=== PATIENT | female | born 1965 | race Caucasian/White ===

== ENCOUNTER 2016-12-03 17:39 | Emergency (ER) | payer MEDICAID ==
[~2016-12-03] VITALS: Ht 160 cm; Wt 48.5 kg
[~2016-12-03 17:39] MED LIST: ALBU18HF INHALATION; ALBU8.5H3 INH; GUAI120S26 PO; PRED20TA PO; RANI150T9 PO
[2016-12-03 19:43] VITALS: Ht 160 cm; Wt 48.5 kg
[2016-12-03] MEDS ORDERED: GUAI473L22 PO (19:57)
[2016-12-03] MEDS ORDERED: ALBU8.5H3 INH (19:57)
[2016-12-03] MEDS ORDERED: FLUT9.9S NASAL (19:57)
[2016-12-03] MEDS ORDERED: PRED50TA PO (19:57)
[2016-12-03] MEDS ORDERED: CETI10CA PO (19:57)
[2016-12-03] MEDS ORDERED: IBUP-1542 PO (19:57)
--- NOTE | 2016-12-03 20:03 | ERD ---
ER Documentation Chief Complaint Date/Time DATE: 12/03/16 TIME: 20:01 Chief Complaint fever/cough with sputum, sore throat x 5 days, hx bronchitis HPI 51-year-old female female here in emergency department for complaints of cough runny nose nasal congestion or sore throat fever for 5 days. Patient has been having cough with whitish phlegm. Patient does not have any shortness breath, onset this is a wheezing at times. Patient does not have any sick contacts. Patient uses albuterol home to help with the wheezing with mild relief. Patient and does complain of sore throat, burning pain, 4/10 scale, is worse, swollen. Patient is complaining of runny nose, nasal congestion with clear nasal discharge. ROS All systems reviewed and are negative except as per history of present illness. Medications Home Meds Active Scripts Guaifenesin-Codeine Phosphate* (Guaifenesin* AC Cough Syrup) 473 Ml Liquid, 10 ML PO Q4H Y for COUGH, #120 ML Prov:MEET BAKER NP 12/03/16 Prednisone* (Prednisone*) 50 Mg Tablet, 50 MG PO DAILY, #5 TAB Prov:MEET BAKER NP 12/03/16 Ibuprofen* (Motrin*) 600 Mg Tab, 600 MG PO Q6H Y for PAIN AND OR ELEVATED TEMP, #30 TAB Prov:MEET BAKER NP 12/03/16 Cetirizine Hcl* (Zyrtec*) 10 Mg Capsule, 10 MG PO DAILY, #30 TAB.CHEW Prov:MEET BAKER NP 12/03/16 Fluticasone Propionate (Flonase Allergy Relief) 9.9 Ml [place].susp, 1 SPRAY NASAL BID, #1 BOTTLE TO EACH NOSTRIL Prov:MEET BAKER NP 12/03/16 Albuterol Sulfate* (Proair HFA*) 8.5 Gm Hfa.aer.ad, 2 PUFF INH Q4H Y for WHEEZING AND SOB, #1 INHALER Prov:MEET BAKER NP 12/03/16 Prednisone* (Prednisone*) 20 Mg Tab, 40 MG PO DAILY for 4 Days, TAB Prov:FADY WINCHESTER PA-C 09/28/16 Albuterol Sulfate* (Proair HFA*) 8.5 Gm Hfa.aer.ad, 2 PUFF INH Q4, #1 INHALER Prov:WINCHESTERFADYPALLAVI Mccormack PA-C 09/28/16 Prednisone* (Prednisone*) 20 Mg Tab, 40 MG PO DAILY for 4 Days, TAB Prov:GERRY MALCOLM PA-C 07/28/16 Eapplhawgue-F-Tcwidhewcn Hb* (Guaifenesin* DM Syrup) 120 Ml Syrup, 10 ML PO Q4H Y for COUGH, #120 ML Prov:GERRY MALCOLM PA-C 07/28/16 Ranitidine Hcl* (Zantac*) 150 Mg Tablet, 150 MG PO BID, #60 TAB Prov:HELENAKEVINCORRYOC HUERTA 07/23/16 Albuterol Sulfate* (Ventolin HFA*) 18 Gm Hfa.aer.ad, 2 PUFF INHALATION Q4H, #1 INHALER Prov:HELENACORRY 07/23/16 Allergies Allergies: Coded Allergies: No Known Allergy (Unverified , 05/12/14) PMhx/Soc Medical and Surgical Hx: pt denies Medical Hx, pt denies Surgical Hx Hx Alcohol Use: No Hx Substance Use: No Hx Tobacco Use: No FmHx Family History: No coronary disease, No diabetes, No other Physical Exam Vitals Vital Signs Date Time Temp Pulse Resp B/P Pulse Ox O2 Delivery O2 Flow Rate FiO2 12/03/16 19:43 98.8 90 20 149/83 100 Physical Exam GENERAL: The patient is well developed and appropriate for usual state of health, in no apparent distress. HEENT: Atraumatic. Ears: Normal tympanic membrane, no erythema or bulging. No ear canal swelling. No ear discharge. Nose: Erythematous nasal turbinates with clear nasal discharge. Throat: oropharynx erythematous with postnasal drip. No tonsillar swelling or tonsillar exudates. No lymphadenopathy. CHEST: Clear to auscultation bilaterally. There are no rales, wheezes or rhonchi. HEART: Regular rate and rhythm. No murmurs, clicks, rubs or gallops. No S3 or S4. ABDOMEN: Soft, nontender and nondistended. Good bowel sounds. No rebound or guarding. No gross peritonitis. No gross organomegaly or masses. No Ewing sign or McBurney point tenderness. BACK: No midline or flank tenderness. EXTREMITIES: Equal pulses bilaterally. There is no peripheral clubbing, cyanosis or edema. No focal swelling or erythema. Full range of motion. Grossly neurovascularly intact. NEURO: Alert and oriented. Cranial nerves 2-12 intact. Motor strength in all 4 extremities with 5/5 strength. Sensation grossly intact. Normal speech and gait. SKIN: There is no apparent rash or petechia. The skin is warm and dry. HEMATOLOGIC AND LYMPHATIC: There is no evidence of excessive bruising or lymphedema. No gross cervical, axillary, or inguinal lymphadenopathy. Procedures/MDM Medical Decision Making: Patient symptoms are most likely consistent with acute bronchitis, which viral in origin. At this time, no wheezing. No symptoms of respiratory distress. No labored breathing noted. There is low suspicion for Pneumonia at this time since patients lungs sounds are clear, patient O2 saturation is normal and patient doesnt show any respiratory distress. Radiology exam is not indicated at this time. There is low suspicion for other cardiopulmonary emergencies at this time such as CHF, Pulmonary Embolism, Pneumothorax, Aortic Aneurysm or any other cardiopulmonary emergencies at this time. There is low suspicion for sepsis. Patient appears well and is hemodynamically stable. Fever is controlled with medicines. Disposition: Home. Condition: Stable Prescriptions: Guaifenesin with codeine, Zyrtec, ibuprofen, Flonase, albuterol, prednisone Instructions: Patient is advised to take medications as prescribed. Patient is advised to rest. Patient advised to increase fluid intake, do humidifier at home and if possible, do salt water gargles. Patient is advised that if symptoms are worse, shortness of breath, uncontrolled fever, stridor, vomiting, worst signs and symptoms to return to emergency department immediately. Otherwise, patient is advised to follow up with primary doctor in 5-7 days. Departure Diagnosis: Primary Impression: Acute bronchitis Bronchitis organism: unspecified organism Qualified Code: J20.9 - Acute bronchitis, unspecified organism Condition: Stable Patient Instructions: Bronchitis With Wheezing (Adult) MEET BAKER NP Dec 03, 2016 20:03
== END 2016-12-03 19:58 | disposition home or self-care (01) ==
LOC: FTE 17:39 → E/R 19:58
DX: J20.9 Acute bronchitis, unspecified (principal)
CPT/HCPCS: 99284

== ENCOUNTER 2017-04-11 09:54 | Emergency (ER) | payer MEDICAID ==
[~2017-04-11] VITALS: Ht 152.4 cm; Wt 47.0 kg
[~2017-04-11 09:54] MED LIST changes: +CETI10CA PO; +FLUT9.9S NASAL; +GUAI473L22 PO; +IBUP-1542 PO; +PRED50TA PO
[2017-04-11 09:57] VITALS: Ht 152.4 cm; Wt 47.0 kg
[2017-04-11] MEDS ORDERED: predniSONE 20 MG TAB PO STA (10:29)
[2017-04-11] MEDS ORDERED: ALBUTEROL 0.5% (NEB) 2.5 MG/0.5 ML AMP INH STA (10:29)
--- NOTE | 2017-04-11 11:14 | RADRPT ---
PROCEDURE: Chest Radiograph. CLINICAL INDICATION: Shortness of breath. Wheezing. TECHNIQUE: Single frontal chest radiograph. COMPARISON: Chest radiograph 09/28/2016 FINDINGS: The cardiomediastinal silhouette is within normal limits. No infiltrate or effusion is seen. Th e bones are intact. IMPRESSION: 1. Unremarkable chest radiograph. RPTAT: KK .Hudson Wills MD, MD Date Time Electronically viewed and signed by .Hudson Wills MD, on 04/11/2017 11:14 .B/
[2017-04-11] MEDS ORDERED: PRED20TA PO (11:24)
[2017-04-11] MEDS ORDERED: ALBU2.5V3 NEB (11:24)
--- NOTE | 2017-04-11 11:30 | ERD ---
ER Documentation Chief Complaint Date/Time DATE: 04/11/17 TIME: 11:26 Chief Complaint Complains of SOB Hx of Asthma HPI Patient is a 51-year-old female with history of asthma presents to the emergency department with a cough and shortness of breath. Patient states she has had a dry cough for a week now. Patient reports shortness of breath which started yesterday. She states that she does have wheezing. Patient last used her albuterol inhaler 3 AM today. Patient denies any fevers, chills, nausea, vomiting, chest pain, diaphoresis, left upper extremity pain, loss loss of consciousness. Patient does report asthma exacerbations in the past. Patient denies history of being intubated or hospitalized. ROS All systems reviewed and are negative except as per history of present illness. Medications Home Meds Active Scripts Albuterol Sulfate* (Albuterol Sulfate* Neb) 0.083%-3 Ml Neb, 2.5 MG NEB Q4 Y for SHORTNESS OF BREATH, #30 EA Prov:MARKY DAI PA-C 04/11/17 Prednisone* (Prednisone*) 20 Mg Tab, 40 MG PO DAILY for 4 Days, TAB Prov:MARKY DAI PA-C 04/11/17 Guaifenesin-Codeine Phosphate* (Guaifenesin* AC Cough Syrup) 473 Ml Liquid, 10 ML PO Q4H Y for COUGH, #120 ML Prov:MEET BAKER NP 12/03/16 Prednisone* (Prednisone*) 50 Mg Tablet, 50 MG PO DAILY, #5 TAB Prov:MEET BAKER NP 12/03/16 Ibuprofen* (Motrin*) 600 Mg Tab, 600 MG PO Q6H Y for PAIN AND OR ELEVATED TEMP, #30 TAB Prov:MEET BAKER NP 12/03/16 Cetirizine Hcl* (Zyrtec*) 10 Mg Capsule, 10 MG PO DAILY, #30 TAB.CHEW Prov:MEET BAKER NP 12/03/16 Fluticasone Propionate (Flonase Allergy Relief) 9.9 Ml [place].susp, 1 SPRAY NASAL BID, #1 BOTTLE TO EACH NOSTRIL Prov:MEET BAKER NP 12/03/16 Albuterol Sulfate* (Proair HFA*) 8.5 Gm Hfa.aer.ad, 2 PUFF INH Q4H Y for WHEEZING AND SOB, #1 INHALER Prov:MEET BAKER NP 12/03/16 Prednisone* (Prednisone*) 20 Mg Tab, 40 MG PO DAILY for 4 Days, TAB Prov:FADY WINCHESTER PA-C 09/28/16 Albuterol Sulfate* (Proair HFA*) 8.5 Gm Hfa.aer.ad, 2 PUFF INH Q4, #1 INHALER Prov:FADY WINCHESTER PA-C 09/28/16 Prednisone* (Prednisone*) 20 Mg Tab, 40 MG PO DAILY for 4 Days, TAB Prov:GERRY MALCOLM PA-C 07/28/16 Onwslhswtug-N-Anmomtudhj Hb* (Guaifenesin* DM Syrup) 120 Ml Syrup, 10 ML PO Q4H Y for COUGH, #120 ML Prov:GERRY MALCOLM PA-C 07/28/16 Ranitidine Hcl* (Zantac*) 150 Mg Tablet, 150 MG PO BID, #60 TAB Prov:HELENACORRY DO 07/23/16 Albuterol Sulfate* (Ventolin HFA*) 18 Gm Hfa.aer.ad, 2 PUFF INHALATION Q4H, #1 INHALER Prov:CORRY MALIK 07/23/16 Allergies Allergies: Coded Allergies: No Known Allergy (Unverified , 04/11/17) PMhx/Soc Medical and Surgical Hx: pt denies Surgical Hx History of Surgery: No Anesthesia Reaction: No Hx Neurological Disorder: No Hx Respiratory Disorders: Yes (bronchitis, bronchopneumonia) Hx Cardiac Disorders: No Hx Psychiatric Problems: No Hx Miscellaneous Medical Probl: No Hx Alcohol Use: No Hx Substance Use: No Hx Tobacco Use: No Smoking Status: Never smoker FmHx Family History: diabetes Physical Exam Vitals Vital Signs Date Time Temp Pulse Resp B/P Pulse Ox O2 Delivery O2 Flow Rate FiO2 04/11/17 11:40 98.0 99 20 126/71 98 Room Air 04/11/17 10:50 95 22 94 21 04/11/17 10:34 Nasal Cannula 2 04/11/17 09:57 98.3 95 20 133/71 96 Physical Exam General: Well-developed, well-nourished female. Appears in no acute distress. No abdominal retractions, nasal flaring, no tripoding noted. Head: Normocephalic, atraumatic. Eyes: Pupils are equally reactive bilaterally. EOMs grossly intact. No conjunctival erythema. ENT: External ear without any masses or tenderness. TM visualized bilaterally, non-erythematous, non-bulging. Nasal septum midline. Nasal mucosa pink with no discharge. Oropharynx is pink without any tonsillar erythema or exudates. No tonsillar swelling noted. No kissing tonsils. Nontender palpation of bilateral mastoid processes. Neck: Supple. Normal range of motion of the neck. No meningeal signs. Lungs: Wheezing in bilateral lobes. Heart: Regular rate and rhythm. No murmurs, rubs or gallops. Extremities: No pedal edema, unilateral leg swelling. 5/5 strength in all extremities. Neurologic: Alert and oriented x3. Moving all four extremities. Normal speech. Steady gait. Skin: Normal color. Warm and dry. No rashes or lesions. Results 24 hrs Current Medications Medications (Trade) Dose Ordered Sig/Alycia Route PRN Reason Start Time Stop Time Status Last Admin Dose Admin Albuterol (Proventil 0.5% (Neb)) 10 mg ONCE STAT INH 04/11/17 10:29 04/11/17 10:32 DC 04/11/17 10:49 Prednisone (Prednisone) 40 mg ONCE STAT PO 04/11/17 10:29 04/11/17 10:32 DC 04/11/17 10:37 Procedures/MDM ED COURSE: The patient was stable throughout ED course. I kept the patient and/or family informed of laboratory and diagnostic imaging results throughout the ED course. DIAGNOSTIC IMAGING: Read by radiologist. DIAGNOSTIC IMAGING REPORT Patient: DAVID MARTINO : 1965 Age: 51 Sex: F MR #: [id number] [facility] #: [id number] DOS: 04/11/17 1029 Ordering MD: MARKY DAI PA-C Location: [facility] Room/Bed: PROCEDURE: Chest Radiograph. CLINICAL INDICATION: Shortness of breath. Wheezing. TECHNIQUE: Single frontal chest radiograph. COMPARISON: Chest radiograph 09/28/2016 FINDINGS: The cardiomediastinal silhouette is within normal limits. No infiltrate or effusion is seen. The bones are intact. IMPRESSION: 1. Unremarkable chest radiograph. RPTAT: KK .Hudson Wills MD, MD Date Time Electronically viewed and signed by .Hudson Wills MD, MD on 2016 11:14 .B/ CC: MARKY DAI PA-C PROCEDURES: None. MEDICATIONS GIVEN: Albuterol breathing treatment, prednisone Patient tolerated medication well with no adverse reactions. MEDICAL DECISION MAKING: This is a 51-year-old female with a history of asthma presents to the ED with cough 1 week and shortness breath that started yesterday. Patient does report wheezing. Vital signs were reviewed. Patient was afebrile. Patient was not hypoxic. ENT exam was normal. Lung exam initially revealed bilateral wheezing. Patient was given a breathing treatment here in the ED. Upon reexamination, patient had improved breath sounds. Patient stated that she did feel better. Chest x-ray was unremarkable. Patient displayed no signs of respiratory distress at time of discharge. Patient had no nasal flaring, retractions or tripoding. Given these findings, the patient's presentation is most consistent with asthma exacerbation secondary to viral URI. I have a much lower clinical concern for bacterial infections including acute respiratory distress, respiratory failure, pneumonia, meningitis, sinusitis, otitis externa, acute otitis media, strep pharyngitis, epiglottitis or peritonsillar abscess. At this time I do not believe the patient requires inpatient admission. PRESCRIPTIONS: Albuterol nebulizer solution, prednisone DISCHARGE: At this time, patient is stable for discharge and outpatient management. Supportive therapies such as OTC throat lozenges, salt water gurgles, popsicles and jello discussed. I have instructed the patient to follow-up with his/her primary care physician in 1-2 days. I have instructed the patient to promptly return to the ER for any new or worsening symptoms including increased pain, swelling, fever, nausea, vomiting, weakness or difficulty breathing. The patient and/or family expressed understanding of and agreement with this plan. All questions were answered. Home care instructions were provided. Departure Diagnosis: Primary Impression: Asthma exacerbation Additional Impression: Viral URI Condition: Stable Patient Instructions: Asthma Medications Referrals: [facility] YOU HAVE RECEIVED A MEDICAL SCREENING EXAM AND THE RESULTS INDICATE THAT YOU DO NOT HAVE A CONDITION THAT REQUIRES URGENT TREATMENT IN THE EMERGENCY DEPARTMENT. FURTHER EVALUATION AND TREATMENT OF YOUR CONDITION CAN WAIT UNTIL YOU ARE SEEN IN YOUR DOCTORS OFFICE WITHIN THE NEXT 1-2 DAYS. IT IS YOUR RESPONSIBILITY TO MAKE AN APPOINTMENT FOR FOLOW-UP CARE. IF YOU HAVE A PRIMARY DOCTOR --you should call your primary doctor and schedule an appointment IF YOU DO NOT HAVE A PRIMARY DOCTOR YOU CAN CALL OUR PHYSICIAN REFERRAL HOTLINE AT IF YOU CAN NOT AFFORD TO SEE A PHYSICIAN YOU CAN CHOSE FROM THE FOLLOWING [facility] [address] [facility] [address] [facility]. [facility] [address] [facility] [address] [facility] [address] [facility]. [facility] [address] [facility]. [facility] YOU HAVE RECEIVED A MEDICAL SCREENING EXAM AND THE RESULTS INDICATE THAT YOU DO NOT HAVE A CONDITION THAT REQUIRES URGENT TREATMENT IN THE EMERGENCY DEPARTMENT. FURTHER EVALUATION AND TREATMENT OF YOUR CONDITION CAN WAIT UNTIL YOU ARE SEEN IN YOUR DOCTORS OFFICE WITHIN THE NEXT 1-2 DAYS. IT IS YOUR RESPONSIBILITY TO MAKE AN APPOINTMENT FOR FOLOW-UP CARE. IF YOU HAVE A PRIMARY DOCTOR --you should call your primary doctor and schedule and appointment IF YOU DO NOT HAVE A PRIMARY DOCTOR YOU CAN CALL OUR PHYSICIAN REFERRAL HOTLINE AT . IF YOU CAN NOT AFFORD TO SEE A PHYSICIAN YOU CAN CHOSE FROM THE FOLLOWING [facility] INSTITUTIONS: [facility] [address] [place] [address] [facility] [address] [place] [address] [facility] [address] [place] [address] Additional Instructions: Llame al doctor MAANA y blair malika LESLY PARA DENTRO DE 1-2 WOOD.Dgale a la secretaria que nosotros le instruimos hacer esta lesly.Avise o llame si mari condicin se empeora antes de la lesly. Regresa aqui si peor o no mejor. MARKY DAI PA-C Apr 11, 2017 11:30
[2017-04-11 11:40] VITALS: BP 126/71; PULSE 99; RESP 20; TEMP 98
== END 2017-04-11 11:40 | disposition home or self-care (01) ==
LOC: FTE 09:54
DX: J45.901 Unspecified asthma with (acute) exacerbation (principal); J06.9 Acute upper respiratory infection, unspecified
CPT/HCPCS: 71010; 94664; J7512; Z7610

== ENCOUNTER 2017-05-02 20:09 | Inpatient (IN) | payer MEDICAID ==
[~2017-05-02] VITALS: Ht 165.1 cm; Wt 45.5 kg
[~2017-05-02 20:09] MED LIST changes: +ALBU2.5V3 NEB
[2017-05-02] MEDS ORDERED: ALBUTEROL 0.5% (NEB) 2.5 MG/0.5 ML AMP INH STA (20:50)
[2017-05-02] MEDS ORDERED: METHYLPREDNISOLONE 125 MG INJ IM STA (20:50)
[2017-05-02] MEDS ORDERED: ALBUTEROL 0.083% (NEB) 2.5 MG/3 ML AMP HHN STA (21:14)
--- NOTE | 2017-05-02 21:30 | RADRPT ---
PROCEDURE: XR Chest. CLINICAL INDICATION: Asthma exacerbation. TECHNIQUE: Single frontal view of the chest was obtained. COMPARISON: Chest x-ray 04/11/2017. FINDINGS: The soft tissues are normal. The bony elements are normal. The heart, cardiomediastinal silhouette and hilar structures are normal. The pulmonary vasculature is normal. There is a left-sided aorta. The lungs are hyperinflated with flattening of the diaphragms. The costophrenic angles are normal. IMPRESSION: 1. Pulmonary hyperinflation which has worsened slightly as compared to 04/11/2017. 2. No evidence of an acute infiltrate. RPTAT:AAJJ Physician Nikole Date Time Electronically viewed and signed by Miguel Angel Ny Physician on 05/02/2017 21:29 /
[2017-05-02] MEDS ORDERED: LEVALBUTEROL (NEB) 1.25 MG/0.5 ML AMP INH STA (22:22)
[2017-05-02] MEDS ORDERED: IPRATROPIUM (NEB) 0.5 MG/2.5 ML AMP INH STA (22:22)
[2017-05-02] MEDS ORDERED: MAGNESIUM SULFATE 2 GM/50 ML 50 ML IVPB STA (22:22)
--- NOTE | 2017-05-03 00:06 | HP ---
Date/Time of Note Date/Time of Note DATE: 05/03/17 TIME: 00:05 Assessment/Plan VTE Prophylaxis VTE Prophylaxis Intervention: ambulation, SCD's Lines/Catheters IV [facility] Saline Lock Assessment/Plan Assessment/Plan 1. Acute asthma exacerbation with mild resp failure 2. Acute pneumonitis PLAN: bronchodilator / empiric abx / supportive care s/p steroids and mag in ER Supplemental Os, wean as tolerated Further interventions per clinical course HPI/ROS Admit Date/Time Admit Date/Time 05/03/17 Hx of Present Illness 51-year-old female with a chronic history of asthma who presents with shortness of breath and wheezing for the last 4 days. Her symptoms have slowly been worsening and she is also having cough productive of whitish sputum. She has had no fever however she had this used her home inhaler with minimal improvement. She is a non-smoker. She has required oral prednisone therapy in the past. Denies abdominal pain, nausea, vomiting, blood in stool or black stools. Also denies dysuria or hematuria. ROS 12 point review if systems was done and pertinent findings are as noted. PMH/Family/Social Past Medical History * asthma Past Surgical History Past Surgical Hx: no surgical history Family History Significant Family History: asthma Social History Smoking Status: Never smoker Exam/Review of Systems Vital Signs Vitals VS - Last 72 Hours, by Label Date Time Temp Pulse Resp B/P Pulse Ox O2 Delivery O2 Flow Rate FiO2 05/03/17 00:43 98.9 115 22 99/57 95 Nasal Cannula 2.0 05/02/17 22:30 128 22 89 21 05/02/17 21:19 112 24 89 21 05/02/17 20:22 98.9 102 22 166/79 95 Vital Signs Date Time Temp Pulse Resp B/P Pulse Ox O2 Delivery O2 Flow Rate FiO2 05/02/17 22:30 128 22 89 21 05/02/17 20:22 98.9 166/79 Exam Exam GENERAL: Patient is alert, oriented x 3, still in mild resp distress, but comfortable with o2 HEENT: Oropharynx is clear. There is no carotid bruit, no masses. Patient's pupils are equal, round and reactive to light bilaterally. Extraocular motions are intact. There is no scleral icterus. There is no facial asymmetry. NECK: Supple. LUNGS: diminshed breath sounds with diffuse exp wheezing HEART: S1, S2. No murmur, gallops or rubs. Regular rate and rhythm. ABDOMEN: Soft, nontender. Normoactive bowel sounds. There are no stigmata of chronic liver disease. BACK: no costovertebral angle tenderness. GENITOURINARY: Deferred. EXTREMITIES: No edema. There is no cyanosis, clubbing. There are 2+ pulses bilaterally distally. NEUROLOGIC: The patient has no lateralizing signs. Cranial nerves II-XII are intact. SKIN: Otherwise, unremarkable. Procedures Procedures Current Medications Medications (Trade) Dose Ordered Sig/Alycia Route PRN Reason Start Time Stop Time Status Last Admin Dose Admin Albuterol (Proventil 0.5% (Neb)) 5 mg ONCE STAT INH 05/02/17 20:50 05/02/17 20:52 DC 05/02/17 21:06 Methylprednisolone Sodium Succinate (Solu-Medrol) 125 mg ONCE STAT IM 05/02/17 20:50 05/02/17 20:52 DC 05/02/17 21:02 Albuterol (Proventil 0.083% (Neb)) 5 mg ONCE STAT HHN 05/02/17 21:14 05/02/17 21:15 DC 05/02/17 21:19 Levalbuterol (Xopenex Neb) 7.5 mg ONCE STAT INH 05/02/17 22:22 05/02/17 22:27 DC 05/02/17 22:30 Ipratropium [place] 1 mg 1 mg ONCE STAT INH 05/02/17 22:22 05/02/17 22:27 DC 05/02/17 22:30 Magnesium Sulfate (Magnesium Sulfate 2 Gm/50 ml) 50 ml @ 25 mls/hr ONCE STAT IVPB 05/02/17 22:22 05/03/17 00:21 DC 05/02/17 22:49 PROCEDURE: XR Chest. CLINICAL INDICATION: Asthma exacerbation. TECHNIQUE: Single frontal view of the chest was obtained. COMPARISON: Chest x-ray 04/11/2017. FINDINGS: The soft tissues are normal. The bony elements are normal. The heart, cardiomediastinal silhouette and hilar structures are normal. The pulmonary vasculature is normal. There is a left-sided aorta. The lungs are hyperinflated with flattening of the diaphragms. The costophrenic angles are normal. IMPRESSION: 1. Pulmonary hyperinflation which has worsened slightly as compared to 2016. 2. No evidence of an acute infiltrate. RPTAT:AAJJ Physician Nikole Date Time Electronically viewed and signed by Miguel Angel Ny, Physician on 05/02/2017 21:29 JM/ CC: BENITO LIMA PA-C, [place] M. May 03, 2017 00:05
[2017-05-03 00:43] VITALS: TEMP 98.9
--- NOTE | 2017-05-03 00:55 | ERA ---
ER Documentation Chief Complaint Date/Time DATE: 05/03/17 TIME: 00:47 Chief Complaint sob/asthma x 4 days. wheezing both lungs HPI This is a 51-year-old female with a history of asthma or chronic bronchitis presenting to the emergency department complaining of shortness of breath and wheezing for the past 4 days. Patient denies any fever , chest pain or cough. Patient has tried albuterol at 7 PM & Symbicort at 9am this morning ROS All systems reviewed and are negative except as per history of present illness. Medications Home Meds Active Scripts Albuterol Sulfate* (Albuterol Sulfate* Neb) 0.083%-3 Ml Neb, 2.5 MG NEB Q4 Y for SHORTNESS OF BREATH, #30 EA Prov:MARKY DAI PA-C 04/11/17 Prednisone* (Prednisone*) 20 Mg Tab, 40 MG PO DAILY for 4 Days, TAB Prov:MARKY DAI PA-C 04/11/17 Guaifenesin-Codeine Phosphate* (Guaifenesin* AC Cough Syrup) 473 Ml Liquid, 10 ML PO Q4H Y for COUGH, #120 ML Prov:MEET BAKER NP 12/03/16 Prednisone* (Prednisone*) 50 Mg Tablet, 50 MG PO DAILY, #5 TAB Prov:MEET BAKER NP 12/03/16 Ibuprofen* (Motrin*) 600 Mg Tab, 600 MG PO Q6H Y for PAIN AND OR ELEVATED TEMP, #30 TAB Prov:MEET BAKER NP 12/03/16 Cetirizine Hcl* (Zyrtec*) 10 Mg Capsule, 10 MG PO DAILY, #30 TAB.CHEW Prov:MEET BAKER NP 12/03/16 Fluticasone Propionate (Flonase Allergy Relief) 9.9 Ml [place].susp, 1 SPRAY NASAL BID, #1 BOTTLE TO EACH NOSTRIL Prov:MEET BAKER NP 12/03/16 Albuterol Sulfate* (Proair HFA*) 8.5 Gm Hfa.aer.ad, 2 PUFF INH Q4H Y for WHEEZING AND SOB, #1 INHALER Prov:MEET BAKER NP 12/03/16 Prednisone* (Prednisone*) 20 Mg Tab, 40 MG PO DAILY for 4 Days, TAB Prov:FADY WINCHESTER PA-C 09/28/16 Albuterol Sulfate* (Proair HFA*) 8.5 Gm Hfa.aer.ad, 2 PUFF INH Q4, #1 INHALER Prov:FADY WINCHESTER PA-C 09/28/16 Prednisone* (Prednisone*) 20 Mg Tab, 40 MG PO DAILY for 4 Days, TAB Prov:GERRY MALCOLM PA-C 07/28/16 Anvwrchzrgk-K-Vawvakbupw Hb* (Guaifenesin* DM Syrup) 120 Ml Syrup, 10 ML PO Q4H Y for COUGH, #120 ML Prov:GERRY MALCOLM PA-C 07/28/16 Ranitidine Hcl* (Zantac*) 150 Mg Tablet, 150 MG PO BID, #60 TAB Prov:CORRY MALIK DO 07/23/16 Albuterol Sulfate* (Ventolin HFA*) 18 Gm Hfa.aer.ad, 2 PUFF INHALATION Q4H, #1 INHALER Prov:HELENACORRY 07/23/16 Allergies Allergies: Coded Allergies: No Known Allergy (Unverified , 05/02/17) PMhx/Soc Medical and Surgical Hx: pt denies Surgical Hx History of Surgery: No Anesthesia Reaction: No Hx Neurological Disorder: No Hx Respiratory Disorders: Yes (bronchitis, bronchopneumonia) Hx Cardiac Disorders: No Hx Psychiatric Problems: No Hx Miscellaneous Medical Probl: No Hx Alcohol Use: No Hx Substance Use: No Hx Tobacco Use: No Smoking Status: Never smoker Physical Exam Vitals Vital Signs Date Time Temp Pulse Resp B/P Pulse Ox O2 Delivery O2 Flow Rate FiO2 05/03/17 00:43 98.9 115 22 99/57 95 Nasal Cannula 2.0 05/02/17 22:30 128 22 89 21 05/02/17 21:19 112 24 89 21 05/02/17 20:22 98.9 102 22 166/79 95 Physical Exam GENERAL: WD/WN, in no apparent distress, non-toxic appearing HENT: NC/AT, bilateral TM has good cone of light EYES: Conjunctiva normal NECK: Supple PULM: Inspiratory and expiratory wheezing. No rales, crackles, or rhonchi heard. No tripod position, normal labored breathing, no stridor, no evidence of using accessory muscles. CV: Good capillary refill, good S1 and S2, no murmurs appreciated GI: Non-distended, no guarding BACK: No masses. EXT: No clubbing, cyanosis, or edema. NEURO: Moves on all fours SKIN: intact, no cyanosis. PSYCH: Normal mood Results 24 hrs Current Medications Medications (Trade) Dose Ordered Sig/Alycia Route PRN Reason Start Time Stop Time Status Last Admin Dose Admin Albuterol (Proventil 0.5% (Neb)) 5 mg ONCE STAT INH 05/02/17 20:50 05/02/17 20:52 DC 05/02/17 21:06 Methylprednisolone Sodium Succinate (Solu-Medrol) 125 mg ONCE STAT IM 05/02/17 20:50 05/02/17 20:52 DC 05/02/17 21:02 Albuterol (Proventil 0.083% (Neb)) 5 mg ONCE STAT HHN 05/02/17 21:14 05/02/17 21:15 DC 05/02/17 21:19 Levalbuterol (Xopenex Neb) 7.5 mg ONCE STAT INH 05/02/17 22:22 05/02/17 22:27 DC 05/02/17 22:30 Ipratropium [place] 1 mg 1 mg ONCE STAT INH 05/02/17 22:22 05/02/17 22:27 DC 05/02/17 22:30 Magnesium Sulfate (Magnesium Sulfate 2 Gm/50 ml) 50 ml @ 25 mls/hr ONCE STAT IVPB 05/02/17 22:22 05/03/17 00:21 DC 05/02/17 22:49 Procedures/MDM This is a 51-year-old female presenting to the emergency department with shortness of breath and wheezing for past 4 days. Patient was still saturating at 90% oxygen after 2 breathing treatments therefore it is best that patient will get admitted to [facility] for further evaluation and management. IV access established. Patient was given 25 mg of Solu-Medrol. Patient was given albuterol 10 mg continuous 1 hour treatments and reassessed, she was still wheezing and saturating at 88-90% therefore another breathing treatment of 7.5mg Xopenex, 1 mg Atrovent continuous 1 hour treatment was given with magnesium 2 g infused over 20 minutes. Patient was reassessed and still saturating at 89. Patient was placed on 2 L of oxygen. I have consulted the attending physician who accepted admission for this patient. CXR - 1. Pulmonary hyperinflation which has worsened slightly as compared to 2016. 2. No evidence of an acute infiltrate. Patient is stable to be transferred to [facility] floor. Departure Diagnosis: Primary Impression: Respiratory distress Condition: Serious BENITO LIMA PA-C May 03, 2017 00:55
[2017-05-03 01:15] VITALS: BP 114/64; PULSE 109; RESP 18; Ht 165.1 cm; Wt 45.5 kg
[2017-05-03] MEDS ORDERED: ALBUTEROL 0.083% (NEB) 2.5 MG/3 ML AMP HHN PRN (01:30)
[2017-05-03] MEDS ORDERED: GUAIFENESIN/CODEINE 5ML CUP PO PRN (02:00)
[2017-05-03] MEDS ORDERED: LEVOFLOXACIN 500MG/D5W (PMX) 100 ML IVPB SCH (02:00)
[2017-05-03] MEDS: ALBUTEROL 0.083% (NEB) 2.5 MG/3 ML AMP HHN SCH ×3 (05:05→13:55)
[2017-05-03 05:43] LABS: ADD SCAN DIFF NO
[2017-05-03 05:50] LABS: ABNORMAL IP MESSAGE 1; HEMATOCRIT 42.2 % (37.0-47.0); HEMOGLOBIN 14.2 g/dl (12.0-16.0); LYMPHOCYTES # 0.5 10^3/ul (0.8-2.9); LYMPHOCYTES % 6.6 % (15.0-51.0); MEAN CORPUSCULAR HEMOGLOBIN 31.2 pg (29.0-33.0); MEAN CORPUSCULAR HGB CONC 33.6 g/dl (32.0-37.0); MEAN CORPUSCULAR VOLUME 92.7 fl (82.0-101.0); MEAN PLATELET VOLUME 9.5 fl (7.4-10.4); MONOCYTES % 0.5 % (0.0-11.0); NEUTROPHIL # 7.4 10^3/ul (1.6-7.5); NEUTROPHILS % 92.6 % (39.0-77.0); PLATELET COUNT 293 10^3/UL (140-415); RED BLOOD COUNT 4.55 10^6/ul (4.20-5.40)
[2017-05-03 06:08] LABS: CALCIUM 9.1 mg/dl (8.4-10.2); CREATININE 0.53 mg/dl (0.44-1.00); POTASSIUM 3.4 mmol/L (3.5-5.1)
[2017-05-03 07:15] VITALS: BP 111/57; PULSE 87; RESP 18
[2017-05-03 08:04] VITALS: BP 113/58; RESP 17
[2017-05-03] MEDS ORDERED: SALMETEROL/FLUTICASONE 250/50 INHA INH SCH (09:00)
[2017-05-03 14:38] VITALS: BP 108/58; RESP 18
[2017-05-03] MEDS ORDERED: POTASSIUM CHLORIDE (SR) 20 MEQ TAB PO STA (15:34)
--- NOTE | 2017-05-03 15:41 | PDOCDIS ---
Discharge Instructions CONDITION Patient Condition: Stable HOME CARE INSTRUCTIONS: Diet Instructions: Low Fat /Cholesterol ACTIVITY: Activity Restrictions: Slowly Increase Activity FOLLOW UP/APPOINTMENTS Follow-up Plan Please take your medicines as prescribed. Please follow-up with your doctor in the clinic in the next 1 week. ZORA ROSE May 03, 2017 15:41
[2017-05-03] MEDS ORDERED: ADV25050 INH (15:45)
[2017-05-03] MEDS ORDERED: ALBU2.5V3 HHN (15:45)
[2017-05-03] MEDS ORDERED: ALBU8.5H3 INH (15:45)
[2017-05-03] MEDS ORDERED: LEVO750T25 PO (15:45)
[2017-05-03] MEDS ORDERED: FLUT9.9S NASAL (15:45)
[2017-05-03] MEDS ORDERED: GUAI-637 PO (15:46)
--- NOTE | 2017-05-03 15:51 | DS ---
Date/Time of Note Date/Time of Note DATE: 05/03/17 TIME: 15:48 Discharge Summary Admission/Discharge Info Admit Date/Time May 03, 2017 at 00:11 Discharge Date/Time Discharge Diagnosis 1. Acute asthma exacerbation with mild resp failure - improved 2. Acute pneumonitis Patient Condition: Stable Hospital Course 51-year-old female with a chronic history of asthma who presents with shortness of breath and wheezing for the last 4 days. Her symptoms have slowly been worsening and she is also having cough productive of whitish sputum. She has had no fever however she had this used her home inhaler with minimal improvement. She is a non-smoker. She has required oral prednisone therapy in the past. Denies abdominal pain, nausea, vomiting, blood in stool or black stools. Also denied dysuria or hematuria. She was admitted to medical surgical unit with asthma exacerbation, started on breathing treatments, steroids were given in the ER, cough medicine, antibiotics. Over the course of her stay her treating symptoms slowly improved. She was able to ambulate, tolerated p.o. diet, she requested some refills for her home medications which we provided and she will be discharged home today in improved condition please see discharge medication list for full list of discharge medications. In addition to that she will be on a prednisone taper 40 mg p.o. daily for 2 days then 20 mg p.o. daily for 2 days then 10 mg p.o. daily for 2 days then stop. Home Meds Active Scripts Guaifenesin* (Robitussin*) 100 Mg/5 Ml Syrup, 200 MG PO Q4H Y for COUGH, #1 ML 2 Refills Prov:ZORA ROSE S. 05/03/17 Levofloxacin* (Levaquin*) 750 Mg Tablet, 750 MG PO DAILY for 5 Days, TAB Prov:ZORA ROSE S. 05/03/17 Salmeterol Xinaf/Fluticasone* (Advair*) 250-50 Diskus Inhaler, 1 INH INH BID for 30 Days, 5 Refills Prov:ZORA ROSE S. 05/03/17 Albuterol Sulfate* (Albuterol Sulfate* Neb) 0.083%-3 Ml Neb, 1.25 MG HHN Q4H RESP THERAPY, #120 5 Refills Prov:ZORA ROSE S. 05/03/17 Fluticasone Propionate (Flonase Allergy Relief) 9.9 Ml [place].susp, 1 SPRAY NASAL BID, #1 BOTTLE 3 Refills TO EACH NOSTRIL Prov:ZORA ROSE S. 05/03/17 Albuterol Sulfate* (Proair HFA*) 8.5 Gm Hfa.aer.ad, 2 PUFF INH Q4H Y for WHEEZING AND SOB, #1 INHALER 5 Refills Prov:ZORA ROSE S. 05/03/17 Ibuprofen* (Motrin*) 600 Mg Tab, 600 MG PO Q6H Y for PAIN AND OR ELEVATED TEMP, #30 TAB Prov:MEET BAKER NP 12/03/16 Cetirizine Hcl* (Zyrtec*) 10 Mg Capsule, 10 MG PO DAILY, #30 TAB.CHEW Prov:MEET BAKER NP 12/03/16 Ranitidine Hcl* (Zantac*) 150 Mg Tablet, 150 MG PO BID, #60 TAB Prov:CORRY MALIK DO 07/23/16 Discontinued Scripts Albuterol Sulfate* (Albuterol Sulfate* Neb) 0.083%-3 Ml Neb, 2.5 MG NEB Q4 Y for SHORTNESS OF BREATH, #30 EA Prov:MARKY DAI PA-C 04/11/17 Prednisone* (Prednisone*) 20 Mg Tab, 40 MG PO DAILY for 4 Days, TAB Prov:MARKY DAI PA-C 04/11/17 Guaifenesin-Codeine Phosphate* (Guaifenesin* AC Cough Syrup) 473 Ml Liquid, 10 ML PO Q4H Y for COUGH, #120 ML Prov:MEET BAKER NP 12/03/16 Prednisone* (Prednisone*) 50 Mg Tablet, 50 MG PO DAILY, #5 TAB Prov:MEET BAEKR NP 12/03/16 Prednisone* (Prednisone*) 20 Mg Tab, 40 MG PO DAILY for 4 Days, TAB Prov:FADY WINCHESTER PA-C 09/28/16 Albuterol Sulfate* (Proair HFA*) 8.5 Gm Hfa.aer.ad, 2 PUFF INH Q4, #1 INHALER Prov:FADY WINCHESTER PA-C 09/28/16 Prednisone* (Prednisone*) 20 Mg Tab, 40 MG PO DAILY for 4 Days, TAB Prov:GERRY MALCOLM PA-C 07/28/16 Ogkzqzetawl-B-Itzjopumbf Hb* (Guaifenesin* DM Syrup) 120 Ml Syrup, 10 ML PO Q4H Y for COUGH, #120 ML Prov:GERRY MALCOLM PA-C 07/28/16 Albuterol Sulfate* (Ventolin HFA*) 18 Gm Hfa.aer.ad, 2 PUFF INHALATION Q4H, #1 INHALER Prov:CORRY MALIK DO 07/23/16 Primary Care Provider Not On Staff Doctor Time spent on discharge: > 30 minutes Pending Labs Laboratory Tests Test 05/03/17 05:15 White Blood Count 8.010^3/ul (4.8-10.8) Red Blood Count 4.5510^6/ul (4.20-5.40) Hemoglobin 14.2g/dl (12.0-16.0) Hematocrit 42.2% (37.0-47.0) Mean Corpuscular Volume 92.7fl (82.0-101.0) Mean Corpuscular Hemoglobin 31.2pg (29.0-33.0) Mean Corpuscular Hemoglobin Concent 33.6g/dl (32.0-37.0) Red Cell Distribution Width 13.0% (11.5-14.5) Platelet Count 63418^3/UL (140-415) Mean Platelet Volume 9.5fl (7.4-10.4) Neutrophils % 92.6% (39.0-77.0) Lymphocytes % 6.6% (15.0-51.0) Monocytes % 0.5% (0.0-11.0) Eosinophils % 0.0% (0.0-7.0) Basophils % 0.0% (0.0-2.0) Nucleated Red Blood Cells % 0.0/100WBC (0.0-0.0) Neutrophils # 7.410^3/ul (1.6-7.5) Lymphocytes # 0.510^3/ul (0.8-2.9) Monocytes # 0.010^3/ul (0.3-0.9) Eosinophils # 0.010^3/ul (0.0-0.5) Basophils # 0.010^3/ul (0.0-0.1) Nucleated Red Blood Cells # 0.010^3/ul (0.0-0.0) Sodium Level 142mmol/L (135-144) Potassium Level 3.4mmol/L (3.5-5.1) Chloride Level 103mmol/L (97-110) Carbon Dioxide Level 21mmol/L (21-31) Anion Gap 21 (8-16) Blood Urea Nitrogen 6mg/dl (7-20) Creatinine 0.53mg/dl (0.44-1.00) Glucose Level 173mg/dl (70-220) Calcium Level 9.1mg/dl (8.4-10.2) ZORA ROSE May 03, 2017 15:51
== END 2017-05-03 16:45 | disposition home or self-care (01) | DRG 193 ==
LOC: FTE 20:09 → PP2 05-03 00:11
PROVIDERS: ADMIT Family Medicine; ATTEND Family Medicine
DX: J18.9 Pneumonia, unspecified organism (principal); J96.90 Respiratory failure, unspecified, unspecified whether with hypoxia or hypercapnia; J45.901 Unspecified asthma with (acute) exacerbation
CPT/HCPCS: 71010; 80048; 85025; 94640; 94644; 94645; 94664; J1956; J2930; J3475

== ENCOUNTER 2018-04-10 08:48 | Emergency (ER) | END 2018-04-10 11:09 | disposition home or self-care (01) ==

== ENCOUNTER 2018-09-07 19:27 | Emergency (ER) | END 2018-09-07 22:17 | disposition home or self-care (01) ==

== ENCOUNTER 2018-09-16 14:38 | Emergency (ER) | END 2018-09-16 18:25 | disposition home or self-care (01) ==